=== PATIENT | female | born 1975 | race Caucasian/White ===

== ENCOUNTER 2017-09-02 20:22 | Inpatient (IN) | payer MEDICAID ==
[2017-09-02] MEDS ORDERED: LIDOCAINE 1% (MPF) 30 ML INJ INJ (21:00)
[2017-09-02] MEDS ORDERED: MISOPROSTOL 200 MCG TAB PR (21:00)
[2017-09-02] MEDS ORDERED: OXYTOCIN 30 UNITS/LR 500 ML IV (21:00)
[2017-09-02] MEDS ORDERED: METHYLERGONOVINE 0.2 MG INJ IM (21:00)
[2017-09-02] MEDS ORDERED: BUTORPHANOL 2 MG INJ IV (21:00)
[2017-09-02] MEDS ORDERED: CARBOPROST 250 MCG INJ IM (21:00)
[2017-09-02] MEDS: LACTATED RINGER'S 1,000 ML IV (21:36)
[2017-09-02 22:16] LABS: ADD MAN DIFF? NO
[2017-09-02 22:19] LABS: BASOPHILS % 0.4 % (0.0-2.0); EOSINOPHILS # 0.2 10^3/ul (0.0-0.5); EOSINOPHILS % 1.9 % (0.0-7.0); HEMATOCRIT 34.1 % (37.0-47.0); HEMOGLOBIN 11.3 g/dl (12.0-16.0); LYMPHOCYTES # 2.4 10^3/ul (0.8-2.9); LYMPHOCYTES % 31.3 % (15.0-51.0); MEAN CORPUSCULAR HGB CONC 33.1 g/dl (32.0-37.0); MEAN CORPUSCULAR VOLUME 87.4 fl (82.0-101.0); MEAN PLATELET VOLUME 12.3 fl (7.4-10.4); MONOCYTE # 0.8 10^3/ul (0.3-0.9); MONOCYTES % 10.4 % (0.0-11.0); NEUTROPHIL # 4.3 10^3/ul (1.6-7.5); NEUTROPHILS % 55.6 % (39.0-77.0); PLATELET COUNT 174 10^3/UL (140-415); RED CELL DISTRIBUTION WIDTH 14.3 % (11.5-14.5)
[2017-09-02 22:19] LABS: WHITE BLOOD COUNT 7.7 10^3/ul (4.8-10.8)
[2017-09-02 22:38] LABS: INR 0.85; PROTIME 11.7 Sec (11.9-14.9); PT RATIO 0.9
[2017-09-02 22:39] LABS: PARTIAL THROMBOPLASTIN TIME 24.1 Sec (25.0-35.0)
[2017-09-02 23:13] LABS: HEPATITIS B SURFACE ANTIGEN NEGATIVE (NEGATIVE)
[2017-09-03] MEDS: MISOPROSTOL 25 MCG CAPSULE PO ×5 (01:05→19:58)
[2017-09-03] MEDS: LACTATED RINGER'S 1,000 ML IV ×3 (05:08→16:54)
[2017-09-03] MEDS ORDERED: DIPHENHYDRAMINE 50 MG INJ IV (08:30)
[2017-09-03] MEDS ORDERED: EPHEDrine SULFATE 50 MG/5 ML SYG IV (08:30)
[2017-09-03] MEDS ORDERED: ONDANSETRON 4 MG INJ IV (08:30)
[2017-09-03] MEDS ORDERED: NALOXONE (0.4 MG/ML) INJ IV (08:30)
[2017-09-03 11:14] LABS: ADD UMIC NO; UR ASCORBIC ACID NEGATIVE (NEGATIVE); UR BILIRUBIN (Dip) NEGATIVE (NEGATIVE); UR BLOOD (Dip) NEGATIVE (NEGATIVE); UR CLARITY CLEAR (CLEAR); UR COLOR STRAW (YELLOW); UR GLUCOSE (Dip) NEGATIVE (NEGATIVE); UR KETONES (Dip) NEGATIVE (NEGATIVE); UR LEUKOCYTE ESTERASE (Dip) NEGATIVE Leu/ul (NEGATIVE); UR NITRITE (Dip) NEGATIVE (NEGATIVE); UR SPECIFIC GRAVITY (Dip) 1.004 (1.003-1.030); UR TOTAL PROTEIN (Dip) NEGATIVE (NEGATIVE); UR UROBILINOGEN (Dip) NEGATIVE (NEGATIVE)
[2017-09-03 12:21] LABS: ADD MAN DIFF? NO
[2017-09-03 12:24] LABS: WHITE BLOOD COUNT 7.5 10^3/ul (4.8-10.8)
[2017-09-03 12:24] LABS: BASOPHILS % 0.4 % (0.0-2.0); EOSINOPHILS % 0.4 % (0.0-7.0); HEMATOCRIT 35.3 % (37.0-47.0); HEMOGLOBIN 11.5 g/dl (12.0-16.0); LYMPHOCYTES # 1.7 10^3/ul (0.8-2.9); LYMPHOCYTES % 22.9 % (15.0-51.0); MEAN CORPUSCULAR HEMOGLOBIN 28.5 pg (29.0-33.0); MEAN CORPUSCULAR HGB CONC 32.6 g/dl (32.0-37.0); MEAN CORPUSCULAR VOLUME 87.6 fl (82.0-101.0); MEAN PLATELET VOLUME 12.5 fl (7.4-10.4); MONOCYTE # 0.4 10^3/ul (0.3-0.9); MONOCYTES % 5.2 % (0.0-11.0); NEUTROPHIL # 5.3 10^3/ul (1.6-7.5); NEUTROPHILS % 70.8 % (39.0-77.0); PLATELET COUNT 161 10^3/UL (140-415); RED BLOOD COUNT 4.03 10^6/ul (4.20-5.40); RED CELL DISTRIBUTION WIDTH 14.3 % (11.5-14.5)
[2017-09-03 12:45] LABS: ALANINE AMINOTRANSFERASE 26 IU/L (13-69); ALBUMIN 3.1 g/dl (3.3-4.9); ALKALINE PHOSPHATASE 145 IU/L (42-121); ANION GAP 14 (8-16); ASPARTATE AMINO TRANSFERASE 25 IU/L (15-46); BILIRUBIN,INDIRECT 0.3 mg/dl (0-1.1); BILIRUBIN,TOTAL 0.3 mg/dl (0.2-1.3); BLOOD UREA NITROGEN 8 mg/dl (7-20); CARBON DIOXIDE 21 mmol/L (21-31); CHLORIDE 109 mmol/L (97-110); CREATININE 0.54 mg/dl (0.44-1.00); GLUCOSE 93 mg/dl (70-220); POTASSIUM 3.9 mmol/L (3.5-5.1); SODIUM 140 mmol/L (135-144); TOTAL PROTEIN 6.2 g/dl (6.1-8.1); URIC ACID 7.2 mg/dl (3.1-7.9)
[2017-09-03 15:03] LABS: RAPID PLASMA REAGIN NONREACTIVE (NR)
[2017-09-03] MEDS: FENTAnyl 2MCG/ML-ROPIV 0.2% 100 ML BAG EPI (19:06)
[2017-09-03] MEDS: OXYTOCIN 30 UNITS/LR 500 ML IV (20:32)
[2017-09-03] MEDS: DEXTROSE 5%-LR 1,000 ML IV (22:29)
[2017-09-04] MEDS: OXYTOCIN 30 UNITS/LR 500 ML IV ×3 (00:23→04:56)
[2017-09-04] MEDS: MINERAL OIL LIGHT 10 ML VIAL TOP (00:23)
[2017-09-04] MEDS ORDERED: OXYTOCIN 30 UNITS/LR 500 ML IV (00:30)
[2017-09-04] MEDS ORDERED: CARBOPROST 250 MCG INJ IM (00:30)
[2017-09-04] MEDS ORDERED: ONDANSETRON 4 MG INJ IV (00:30)
[2017-09-04] MEDS ORDERED: METHYLERGONOVINE 0.2 MG INJ IM (00:30)
[2017-09-04] MEDS ORDERED: DIPHENHYDRAMINE 25 MG CAP PO (00:30)
[2017-09-04] MEDS ORDERED: NACL 0.9% 3 ML SYG IV (00:30)
[2017-09-04] MEDS ORDERED: MISOPROSTOL 200 MCG TAB PR (00:30)
[2017-09-04] MEDS ORDERED: HYDROCODONE/APAP (5/325) TAB PO (00:30)
[2017-09-04] MEDS ORDERED: ACETAMINOPHEN 325 MG TAB PO (00:30)
[2017-09-04] MEDS ORDERED: LANOLIN 7 GM TUBE TOP (00:30)
[2017-09-04] MEDS: IBUPROFEN 600 MG TAB PO ×4 (01:33→19:03)
[2017-09-04] MEDS: HYDROCODONE/APAP (5/325) TAB PO (02:54)
[2017-09-04] MEDS ORDERED: IBUPROFEN 600 MG TAB PO (06:00)
[2017-09-04 10:13] LABS: ADD MAN DIFF? NO
[2017-09-04 10:17] LABS: WHITE BLOOD COUNT 12.5 10^3/ul (4.8-10.8)
[2017-09-04 10:17] LABS: ABNORMAL IP MESSAGE 1; BASOPHILS % 0.2 % (0.0-2.0); EOSINOPHILS # 0.1 10^3/ul (0.0-0.5); EOSINOPHILS % 0.7 % (0.0-7.0); HEMATOCRIT 34.4 % (37.0-47.0); HEMOGLOBIN 11.2 g/dl (12.0-16.0); LYMPHOCYTES # 1.8 10^3/ul (0.8-2.9); LYMPHOCYTES % 14.6 % (15.0-51.0); MEAN CORPUSCULAR HEMOGLOBIN 28.7 pg (29.0-33.0); MEAN CORPUSCULAR HGB CONC 32.6 g/dl (32.0-37.0); MEAN CORPUSCULAR VOLUME 88.2 fl (82.0-101.0); MEAN PLATELET VOLUME 13.2 fl (7.4-10.4); MONOCYTE # 0.7 10^3/ul (0.3-0.9); MONOCYTES % 5.4 % (0.0-11.0); NEUTROPHIL # 9.8 10^3/ul (1.6-7.5); NEUTROPHILS % 78.5 % (39.0-77.0); PLATELET COUNT 148 10^3/UL (140-415); RED CELL DISTRIBUTION WIDTH 14.3 % (11.5-14.5)
[2017-09-04 10:19] LABS: POSITIVE DIFF @See below
[2017-09-05] MEDS: IBUPROFEN 600 MG TAB PO ×2 (00:17→11:17)
== END 2017-09-05 17:16 | disposition home or self-care (01) | DRG 775 ==
LOC: L-D 09-03 18:07 → PP1 09-04 03:44 → L-D 20:22
PROVIDERS: Obstetrics & Gynecology
PROC: 10E0XZZ Delivery of Products of Conception, External Approach (ICD-10-PCS; principal; 2017-09-04)
PROC: 0KQM0ZZ Repair Perineum Muscle, Open Approach (ICD-10-PCS; 2017-09-04)
DX: O70.1 Second degree perineal laceration during delivery (principal); Z37.0 Single live birth; Z3A.39 39 weeks gestation of pregnancy
CPT/HCPCS: 62319; 76815; 80053; 81003; 84560; 85025; 85384; 85610; 85730; 86592; 86850; 86900; 86901; 87340; 99464